=== PATIENT | female | born 1980 ===

== ENCOUNTER → 2021-01-31 03:33 | Outpatient (CLI) | payer OTHER, SELFPAY ==
[2021-01-31 20:31] LABS: SARS-CoV-2 RNA PCR Negative
== END ==
PROVIDERS: Visit Provider Internal Medicine Critical Care Medicine
DX: Z01.812 Encounter for preprocedural laboratory examination (principal); Z20.822 Contact with and (suspected) exposure to COVID-19
CPT/HCPCS: C9803; U0003; U0005

== ENCOUNTER 2021-02-02 09:31 | Outpatient (CLI) | payer OTHER, SELFPAY ==
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
[2021-02-17 15:08] VITALS: BMI 26.1
== END 2021-02-02 09:32 | disposition home or self-care (01) ==
LOC: ANHCSM 09:44
PROVIDERS: Visit Provider Nurse Practitioner Family
DX: G47.10 Hypersomnia, unspecified (principal); R06.83 Snoring
CPT/HCPCS: 95810